=== PATIENT | female | born 1950 | race Two or more races ===

== ENCOUNTER 2025-05-29 18:03 | Emergency (ER) | payer MEDICARE, OTHER, SELFPAY ==
[2025-05-29 18:06] VITALS: BP 195/105
[2025-05-29 18:29] VITALS: BP 171/78
[2025-05-29 19:03] VITALS: BP 182/81
--- NOTE | 2025-05-29 19:06 | ED.GENMED ---
History of Present Illness
<Courtney Ryan PA-C - Last Filed: 05/30/25 01:17>
General
Chief Complaint: Abnormal Lab Value
Source: patient and spouse
Exam Limitations: none
Time Seen by Provider: 05/29/25 18:21
Nursing documentation reviewed up to this point in time: agreed with
History of Present Illness
History of Present Illness:
Patient is a 74-year-old female with history hypertension, hyperlipidemia, insulin-dependent diabetes who presents to the emergency department with abnormal outpatient lab work. Patient had preop lab work obtained today by her orthopedic surgeon in
preparation for a left total knee replacement where she was found to have an elevated white blood cell count of 49,000. She was then to the emergency department for further evaluation.
Patient states she overall has felt well other than increasing fatigue over the past few weeks�months. However, she states she is sleeping very poorly due to chronic pain in her left knee. Today, she did have a few episodes of diarrhea and diffuse
lower abdominal cramping.
She denies any fevers or chills. No dysuria or hematuria. No significant weight loss or night sweats. She denies any other viral symptoms or productive cough.
Of note�patient had 2 admissions for left knee effusions in February and was found to have a white blood cell of 24,000 in early February and 26,000 in late February. It was never recommended that she specifically follow-up with heme-onc.
Review of Systems
<Courtney Ryan PA-C - Last Filed: 05/30/25 01:17>
Review of Systems
Allergies reviewed?: Yes
All Other Systems: ROS reviewed and negative except as documented in HPI and ROS
Phy Exam
<Courtney Ryan PA-C - Last Filed: 05/30/25 01:17>
Physical Exam
Physical Exam:
Vitals: Mildly tachycardic on arrival, otherwise vital signs stable. Afebrile
General: Patient is in no distress
Skin: Warm and dry, no rashes or lesions
Head: Normocephalic, atraumatic
Eyes: Sclera nonicteric.
Throat: Protecting airway
Neck: Normal ROM, no cervical spine tenderness, no meningismus
Cardiac: Regular rate and rhythm, no murmurs.
Pulm: Normal respiratory effort. Lungs clear bilaterally
Abdomen: Abdomen soft. Diffuse tenderness in lower abdomen. No rebound or guarding
Extremities: Swelling of left knee without obvious effusion. No erythema or warmth.
Neuro: AAOx3. Grossly intact.
Psychiatric: Normal affect.
Course
<Courtney Ryan PA-C - Last Filed: 05/30/25 01:17>
Orders/Labs/Results
Orders:
Orders
05/29/25 18:40
CT Abd/pelvis W Iv Cont Urgent
Comment:
Reason For Exam: lower abdominal pain
05/29/25 18:43
0.9% Sodium Chloride 1000 ml [Nss] 1,000 ml IV BOLUS
05/29/25 19:03
COVID-19 Antigen Urgent
Source: Nasal Swab
Complete Blood Count/With Diff Urgent
Manual Differential Urgent
Influenza A+B Rapid Molecular Urgent
GISELE Source: Nasal Swab
Specimen Description:
Diphenhydramine [Benadryl] 50 mg IV NOW STA
Hydrocortisone Sod Succinate [Solu-Cortef] 200 mg IV NOW STA
05/29/25 19:36
Urinalysis Reflex To Culture Urgent
Date Specimen was Collected: 05/29/25
Time Specimen was Collected: 19:29
Urine Microscopic Reflex Cult Urgent
05/29/25 20:17
Comprehensive Metabolic Panel Urgent
Abnormal Lab Results
05/29/25 05/29/25 05/29/25
19:03 19:36 20:17
WBC 45.7 H* 10^3/uL
(4.8-10.8)
MCH 31.2 H pg
(27.0-31.0)
MCHC 32.6 L g/dL
(33.0-37.0)
Abs Neuts (Manual) 30.6 H 10^3/uL
(1.4-6.5)
Lymphocytes (Manual) 12 L %
(20-51)
Chloride 108 H mmol/L
(98-107)
BUN 19 H mg/dl
(7-17)
Glucose 173 H mg/dl
(70-99)
Urine Bacteria (Reflex) Few A
(Negative)
Urine Glucose 2+ A
(Negative)
Urine Albumin (Reflex) 1+ A
(Neg - Trace)
05/29/25 19:03
05/29/25 20:17
Vital Signs
Pulse: 85
Initial and Last Documented VS:
Initial Vital Signs
Temp Pulse Resp BP Pulse Ox
98.3 F 107 18 195/105 96
05/29/25 18:06 05/29/25 18:06 05/29/25 18:06 05/29/25 18:06 05/29/25 18:06
Last Documented Vital Signs
Temp Pulse Resp BP Pulse Ox
98.3 F 85 18 166/89 95
05/29/25 18:06 05/29/25 22:27 05/29/25 18:06 05/29/25 22:36 05/29/25 22:33
<Krishna Lewis, DO - Last Filed: 05/29/25 19:56>
Orders/Labs/Results
Orders:
Orders
05/29/25 18:40
CT Abd/pelvis W Iv Cont Urgent
Comment:
Reason For Exam: lower abdominal pain
05/29/25 18:43
0.9% Sodium Chloride 1000 ml [Nss] 1,000 ml IV BOLUS
05/29/25 19:03
COVID-19 Antigen Urgent
Source: Nasal Swab
Complete Blood Count/With Diff Urgent
Manual Differential Urgent
Influenza A+B Rapid Molecular Urgent
GISELE Source: Nasal Swab
Specimen Description:
Diphenhydramine [Benadryl] 50 mg IV NOW STA
Hydrocortisone Sod Succinate [Solu-Cortef] 200 mg IV NOW STA
05/29/25 19:36
Urinalysis Reflex To Culture Urgent
Date Specimen was Collected: 05/29/25
Time Specimen was Collected: 19:29
Urine Microscopic Reflex Cult Urgent
05/29/25 20:17
Comprehensive Metabolic Panel Urgent
Abnormal Lab Results
05/29/25 05/29/25 05/29/25
19:03 19:36 20:17
WBC 45.7 H* 10^3/uL
(4.8-10.8)
MCH 31.2 H pg
(27.0-31.0)
MCHC 32.6 L g/dL
(33.0-37.0)
Abs Neuts (Manual) 30.6 H 10^3/uL
(1.4-6.5)
Lymphocytes (Manual) 12 L %
(20-51)
Chloride 108 H mmol/L
(98-107)
BUN 19 H mg/dl
(7-17)
Glucose 173 H mg/dl
(70-99)
Urine Bacteria (Reflex) Few A
(Negative)
Urine Glucose 2+ A
(Negative)
Urine Albumin (Reflex) 1+ A
(Neg - Trace)
05/29/25 19:03
05/29/25 20:17
Vital Signs
Initial and Last Documented VS:
Initial Vital Signs
Temp Pulse Resp BP Pulse Ox
98.3 F 107 18 195/105 96
05/29/25 18:06 05/29/25 18:06 05/29/25 18:06 05/29/25 18:06 05/29/25 18:06
Last Documented Vital Signs
Temp Pulse Resp BP Pulse Ox
98.3 F 85 18 166/89 95
05/29/25 18:06 05/29/25 22:27 05/29/25 18:06 05/29/25 22:36 05/29/25 22:33
<Courtney Ryan PA-C - Last Filed: 05/30/25 01:17>
MDM/Problems Addressed
Differential Diagnosis Includes:
Not limited to: Diverticulitis, colitis, acute dehydration, malignancy, bone marrow disorder, etc.
MDM/Problems Addressed:
74-year-old female with elevated white blood cell count found outpatient today during preop labs for left total knee replacement. She does report one day of diarrhea and lower abdominal discomfort. No fevers, cough, or other viral symptoms.
Patiently mildly tachycardic on arrival, however, improved by my assessment. She is afebrile. On exam, patient appears in no distress. Abdomen is soft with mild tenderness diffusely in lower abdomen without rebound or guarding. Lungs clear.
Extremities without evidence of rash or joint effusion.
I did have lengthy discussion with patient and who were able to obtain records from hospitalizations back in February at outside hospitals. It seems that an early February her white blood cell count was 24,000 and 14028 by the end of February.
Suspect WBC has been gradually increasing over the course of many months. However, with new abdominal pain/diarrhea will obtain CT scan to r/o acute infectious process. Will repeat lab work, give IV fluids and reassess.
Update: labs reveal significant leukocytosis of 46,000. Hemoglobin and platelets normal. Chemistry unremarkable. Urine without evidence of infection. CT scan says no acute intra-abdominal infectious pathology. Few chronic findings noted which were
discussed with patient.
Do not suspect elevated white count secondary to infectious process today. I did discuss case with hematology/oncology, Dr. Wilson who feels likely reflects a chronic leukemia. As patient is hemodynamically stable and well appearing � no indication
for hospitalization. This will most certainly require additional work up, although can be performed outpatient.
Did discuss with patient that her total knee replacement may need to be postponed until underlying etiology of abnormal lab work is sorted out.
Contact information given for oncology. Discussed strict return precautions. Patient verbalized understanding and is stable for discharge home.
Chronic conditions affecting care:
Insulin-dependent diabetes
Acute Exacerbation and/or Progression of Chronic Illness:
Acute hyperglycemia
<Courtney Ryan PA-C - Last Filed: 05/30/25 01:17>
*Radiology
Radiology exam reviewed: radiology read reviewed
*Pulse Oximetry
SaO2: 96
Oxygen Mode of Delivery: Room air
Patient hypoxic: no
*EKG
Interpreted by ED Provider?: NA
*Senior Sales Administrator Interpretation
Rate: normal
Interpretation: normal
Heart Rate: 85
Rhythm: sinus
*Critical Care Note
Total Time (30-74mins, 75-104mins- exclusive of procedures): Not Applicable
<Courtney Ryan PA-C - Last Filed: 05/30/25 01:17>
Patient Management
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
ED Attending Note
<Courtney Ryan PA-C - Last Filed: 05/30/25 01:17>
-
Portions of this chart may have been created with voice recognition software.� Occasional wrong word or��sound alike� substitutions may have occurred due to the inherent limitations of voice recognition software.
<Krishna Lewis DO - Last Filed: 05/29/25 19:56>
ED Attending Note
Patient seen and examined by attending physician: Yes
I performed the substantive portion of visit, reviewed & personally made and approve the management plan that is documented in note by myself or YUDI.: Yes
ED Attending Note:
I evaluated the patient at bedside. The patient had white count of 24 and 26 at [facility] in February. However she states that these were not necessarily addressed but she does report having had an arthrocentesis showed no sign
of joint infection. Her white blood cell count currently is even higher but she has been afebrile and her heart rate is normal. Relatively low suspicion for infectious leukocytosis. More strongly suspect a myeloproliferative disease such as
myelodysplastic syndrome/CLL as her sister was diagnosed with CLL about a year ago.
Discharge Plan
Departure
Patient Disposition: Home (Routine Discharge)
Date of Disposition: 05/29/25
Time of Disposition: 22:29
Patient with high blood pressure during this ER visit?: Yes
Condition: Good
Covid-19: Negative COVID-19
Discharge Problem:
Leukocytosis, Diarrhea
Instructions: BLOOD PRESSURE
Prescriptions:
No Action
Papaya Enzyme Tablet
2 tab PO MEALS
verapamil 180 mg Tablet Extended Release
180 mg PO BID
docusate sodium [Colace] 100 mg Capsule
100 mg PO PRN PRN (Reason: Constipation)
insulin aspart U-100 [Novolog FlexPen U-100 Insulin] 100 unit/mL (3 mL) Insulin Pen
1 sliding scale dose SC DIRECTED
cholecalciferol (vitamin D3) [Vitamin D3] 50 mcg (2,000 unit) Capsule
50 mcg PO DAILY
insulin degludec [Tresiba FlexTouch U-100] 100 unit/mL (3 mL) Insulin Pen
18 unit SC HS
Repatha SureClick 140 mg/mL Pen Injector
140 mg SC Q2W
acetaminophen [Tylenol Arthritis] 650 mg Tablet Extended Release
650 mg PO Q8HPRN PRN (Reason: pain)
oxycodone-acetaminophen 5-325 mg Tablet
1 tab PO DAILYPRN PRN (Reason: pain)
Rx Instructions:
rarely - 1x per week usually
mupirocin 2 % ointment
1 applic intranasal BID Qty: 1 0RF
Culturelle 15 billion cell Capsule, Sprinkle
1 cap PO DAILY
Referrals:
Susy Motley CRNP [Family Provider, General]
Leon Wilson MD [Active, Hematology / Oncology] - Next open appointment
Activity Restrictions/Additional Instructions:
RETURN TO THE EMERGENCY DEPARTMENT WITH ANY FEVER, CHILLS CHEST PAIN OR SHORTNESS OF BREATH, ABDOMINAL PAIN, PRODUCTIVE COUGH, SIGNIFICANT WEAKNESS, WORSENING IN CURRENT SYMPTOMS, OR ANY OTHER CONCERNS
- As discussed, your white blood cell count was very elevated today in the emergency department. This will require further workup outpatient with hematology/oncology. Please contact [phone] tomorrow and leave your contact information for the
hematology office to call you back.
- You will likely need to postpone your knee replacement until the underlying cause of your elevated white blood cell count is sorted out.
- Continue to take all medications as prescribed. It is important to stay well-hydrated
Monitor your symptoms closely and return to the emergency department with any acute worsening/new symptoms or any signs of infection
Interventions
Interventions:
*Risk Screen - Suicide Last Done: 05/29/25 18:06
*General Assessment Last Done: 05/29/25 19:06
*Neglect/Abuse Screening Last Done: 05/29/25 19:06
*ED- Fall Risk Assessment Last Done: 05/29/25 19:06
*ED COVID-19 Vaccine History Last Done: 05/29/25 18:06
*ED Influenza Vaccine History Last Done: 05/29/25 18:06
*Nursing Disposition Last Done: 05/29/25 22:43
Discharge Date and Time
Discharge Date/Time: 05/29/25 22:49
Print Language: SOUTH AFR[place]
[2025-05-29 19:21] LABS: Hematocrit 42.0 % (37.0-47.0); Hemoglobin 13.7 g/dL (12.0-16.0); Mean Corp Hgb Conc. 32.6 g/dL (33.0-37.0); Mean Corpuscular Volume 95.7 fL (81.0-99.0); Platelet Count 323 10^3/uL (130-400); Red Cell Dist. Width 14.5 % (11.5-14.5)
[2025-05-29 19:30] VITALS: BMI 27.7
[2025-05-29 19:34] LABS: Absolute Neutrophils -Man Diff 30.6 10^3/uL (1.4-6.5)
[2025-05-29 19:35] LABS: Platelets Checked Yes
[2025-05-29 19:36] LABS: Anisocytosis 1+; Normal RBC Morphology No
[2025-05-29 19:37] LABS: Macrocytosis Slight; Polychromasia Slight
[2025-05-29 19:38] LABS: Microcytosis Slight; Total Cells Counted 100
[2025-05-29 19:43] LABS: Urine Character Clear (Clear)
[2025-05-29 19:48] LABS: COVID-19 Antigen Negative (Negative)
[2025-05-29 19:49] LABS: Urine Squamous Cell 16-20 /LPF (Few)
[2025-05-29 19:55] LABS: Urine Red Blood Cell 0-2 /HPF (0-2); Urine White Cell 0-2 /HPF (0-5)
[2025-05-29] MEDS: SOLU-CORTEF 200 MG IV (19:59)
[2025-05-29] MEDS: NSS 1000 IV (20:00)
[2025-05-29 20:36] LABS: ALT (SGPT) 28 U/L (0-35); AST (SGOT) 30 U/L (14-36); Albumin 4.2 g/dl (3.5-5.0); Alkaline Phosphatase 73 U/L (38-126); Blood Urea Nitrogen 19 mg/dl (7-17); Calcium 9.2 mg/dl (8.4-10.2); Carbon Dioxide 26 mmol/L (22-30); Chloride 108 mmol/L (98-107); Glucose 173 mg/dl (70-99); Potassium 4.0 mmol/L (3.5-5.1); Sodium 138 mmol/L (135-145); Total Protein 6.4 g/dl (6.3-8.2); eGFR > 60.00
[2025-05-29] MEDS: BENADRYL 50 MG IV (21:22)
[2025-05-29 22:36] VITALS: BP 166/89
== END 2025-05-29 22:49 | disposition home or self-care (01) ==
LOC: EMR 18:03
PROVIDERS: Physician Assistant; EMERGENCY PHYSICIAN Emergency Medicine; FAMILY PHYSICIAN Registered Nurse
DX: D72.829 Elevated white blood cell count, unspecified (principal); R19.7 Diarrhea, unspecified; I10 Essential (primary) hypertension; E78.5 Hyperlipidemia, unspecified; E11.9 Type 2 diabetes mellitus without complications; G89.29 Other chronic pain; Z79.4 Long term (current) use of insulin; Z80.6 Family history of leukemia; Z90.49 Acquired absence of other specified parts of digestive tract; Z11.52 Encounter for screening for COVID-19
CPT/HCPCS: 96374; 96375; 96361; 99284; 74177; 80053; 81003; 81015; 85025; 87502; 87811; Q9967

== ENCOUNTER → 2025-06-26 06:56 | Outpatient (REF) | payer MEDICARE, OTHER, SELFPAY ==
[2025-06-26] VITALS (7 sets, daily range): BP systolic 85–171; BP diastolic 64–96
[2025-06-26] MEDS: ATIVAN 0.5 MG PO (07:42)
[2025-06-26 07:45] LABS: Hematocrit 43.3 % (37.0-47.0); Hemoglobin 14.1 g/dL (12.0-16.0); Mean Corp Hgb Conc. 32.6 g/dL (33.0-37.0); Mean Corpuscular Volume 98.4 fL (81.0-99.0); Platelet Count 268 10^3/uL (130-400); Red Cell Dist. Width 14.6 % (11.5-14.5)
[2025-06-26 08:06] LABS: INR 1.06; PT 13.9 Sec (11.4-14.6)
[2025-06-26] MEDS: ZOFRAN 4 MG IV (08:20)
[2025-06-26 09:02] LABS: Absolute Neutrophils -Man Diff 50.3 10^3/uL (1.4-6.5)
[2025-06-26 09:03] LABS: Platelets Checked Yes; Total Cells Counted 100
[2025-06-26 09:04] LABS: Anisocytosis 1+; Normal RBC Morphology No; Polychromasia 1+
== END ==
LOC: RADI 06:56
PROVIDERS: ATTENDING PHYSICIAN Internal Medicine Hematology & Oncology; FAMILY PHYSICIAN Registered Nurse; REFERRING PHYSICIAN Physician Assistant
DX: C92.10 Chronic myeloid leukemia, BCR/ABL-positive, not having achieved remission (principal); R16.1 Splenomegaly, not elsewhere classified; D68.8 Other specified coagulation defects
CPT/HCPCS: 36415; 38222; 77012; 85025; 85610; 88305; 88311; 88312; 88313